=== PATIENT | female | born 1975 | race Caucasian/White ===

== ENCOUNTER 2021-10-28 12:33 | Inpatient (IN) ==
[2021-10-28] MEDS ORDERED: Lactated Ringers SEPSIS* BAG 1,640 ML IV ONE (12:55)
[2021-10-28] MEDS ORDERED: Piperacillin/Tazobac ADVAN 3.375 GM in NS 0.9% 100 ml BAG 100 ML IV ONE (12:55)
[2021-10-28 13:05] LABS: ABS Lymphocytes 1.2 10^3/ul (1.0-4.8); ABS Monocytes 0.8 10^3/ul (0-0.8); Eosinophil % 0.2 %; Hematocrit 39 % (35-47); Hemoglobin 13.1 g/dL (12.0-16.0); Lymphocyte % 10.2 %; Mean Corpuscular HGB Conc 34 g/dL (31-36); Mean Corpuscular Hemoglobin 27 pg (27-31); Mean Corpuscular Volume 81 fL (80-97); Mean Platelet Volume 7.6 fL (7.4-10.4); Platelet Count 273 10^3/uL (150-450); Red Blood Count 4.84 10^6 /uL (3.70-4.87); Red Cell Distribution Width 14 % (10-15); White Blood Count 12.1 10^3/uL (3.5-10.8)
[2021-10-28] MEDS ORDERED: Morphine 4 MG/ML VIAL (1 ml) IV ONE (13:05)
[2021-10-28] MEDS ORDERED: Ondansetron 4 mg VIAL 2 MG/ML 2 ml VIAL IV ONE (13:05)
[2021-10-28 13:52] LABS: Albumin 3.9 g/dL (3.2-5.2); Albumin/Globulin Ratio 1.3 (1-3); C Reactive Protein 186.07 mg/L (<8.01); Calcium 9.2 mg/dL (8.6-10.3); Potassium 4.3 mmol/L (3.5-5.0); Total Bilirubin 1.3 mg/dL (0.2-1.0); Total Protein 6.9 g/dL (6.4-8.9); eGFR CKD-EPI 93.9 (>60)
[2021-10-28] MEDS ORDERED: Iodixanol (CONTRAST) 320 MG/ML 100 ML SDV IV ONE (14:07)
[2021-10-28 14:53] LABS: Urine Appearance Cloudy; Urine Bilirubin Negative (Negative); Urine Color Yellow; Urine Glucose 3+ (>=1000 mg/dL) (Negative)
[2021-10-28 14:54] LABS: Urine Blood 3+ (Large) (Negative); Urine Ketones Trace (Negative); Urine Nitrite Negative (Negative); Urine Protein 2+ (100 mg/dL) (Negative); Urine Specific Gravity 1.025 (1.005-1.030); Urine Urobilinogen 0.2 (Negative) (Negative)
[2021-10-28 15:01] LABS: Urine Bacteria Absent (Absent); Urine Red Blood Cell 2+(6-10/hpf) (Absent); Urine White Blood Cell 3+(>20/hpf) (Absent)
[2021-10-28] MEDS ORDERED: NS 0.9% 1000 ml BAG 1,000 ML IV SCH (18:15)
[2021-10-28] MEDS ORDERED: Insulin GLARGINE 100 un/ml 10 ml VIAL SUBCUT SCH (18:30)
[2021-10-28 19:21] LABS: TSH Ultra Thyroid Stim Horm 1.88 mcIU/mL (0.34-5.60)
[2021-10-28] MEDS: Ondansetron 4 mg VIAL 2 MG/ML 2 ml VIAL IV PRN (20:28)
[2021-10-28] MEDS: Morphine 2 MG/ML SYRINGE IV PRN (20:31)
[2021-10-28] MEDS ORDERED: cefTRIAXone 1 gm/50 mL D5W 1 GM/50 ML BAG IV ONE (21:30)
[2021-10-29] MEDS ORDERED: Lactated Ringers 1000 ml BAG 1,000 ML IV ONE (00:38)
[2021-10-29] MEDS: Lactated Ringers 1000 ml BAG 1,000 ML IV SCH ×3 (01:51→17:50)
[2021-10-29 05:30] LABS: ABS Basophils 0.1 10^3/ul (0-0.2); ABS Lymphocytes 1.8 10^3/ul (1.0-4.8); ABS Monocytes 0.7 10^3/ul (0-0.8); ABS Neutrophils 5.5 10^3/ul (1.5-7.7); Eosinophil % 0.1 %; Hematocrit 33 % (35-47); Hemoglobin 11.7 g/dL (12.0-16.0); Lymphocyte % 21.9 %; Mean Corpuscular HGB Conc 35 g/dL (31-36); Mean Corpuscular Hemoglobin 29 pg (27-31); Mean Corpuscular Volume 83 fL (80-97); Mean Platelet Volume 7.9 fL (7.4-10.4); Platelet Count 225 10^3/uL (150-450); Red Blood Count 4.04 10^6 /uL (3.70-4.87); Red Cell Distribution Width 14 % (10-15)
[2021-10-29 05:49] LABS: Calcium 8.5 mg/dL (8.6-10.3); Potassium 3.7 mmol/L (3.5-5.0); eGFR CKD-EPI 95.4 (>60)
[2021-10-29] MEDS: Morphine 2 MG/ML SYRINGE IV PRN ×2 (08:13→20:26)
[2021-10-29] MEDS: Ondansetron 4 mg VIAL 2 MG/ML 2 ml VIAL IV PRN ×2 (08:13→20:23)
[2021-10-29] MEDS: CMCS: Glimepiride 2 mg TAB (NF) PO SCH ×2 (11:00→16:29)
[2021-10-29] MEDS: Enoxaparin 40 MG/0.4 ML SYR SUBCUT SCH ×2 (20:29→20:33)
[2021-10-29] MEDS ORDERED: cefTRIAXone 1 gm/50 mL D5W 1 GM/50 ML BAG IV SCH (21:00)
[2021-10-29] MEDS ORDERED: Insulin GLARGINE 100 un/ml 10 ml VIAL SUBCUT SCH ×2 (21:00)
[2021-10-30 06:54] LABS: ABS Eosinophils 0.1 10^3/ul (0-0.6); ABS Lymphocytes 2.3 10^3/ul (1.0-4.8); ABS Monocytes 0.6 10^3/ul (0-0.8); ABS Neutrophils 4.2 10^3/ul (1.5-7.7); Eosinophil % 1.7 %; Hematocrit 35 % (35-47); Hemoglobin 12.1 g/dL (12.0-16.0); Lymphocyte % 30.9 %; Mean Corpuscular HGB Conc 35 g/dL (31-36); Mean Corpuscular Hemoglobin 29 pg (27-31); Mean Corpuscular Volume 82 fL (80-97); Platelet Count 217 10^3/uL (150-450); Red Blood Count 4.25 10^6 /uL (3.70-4.87); Red Cell Distribution Width 14 % (10-15); White Blood Count 7.3 10^3/uL (3.5-10.8)
[2021-10-30 07:17] LABS: Albumin 3.2 g/dL (3.2-5.2); Albumin/Globulin Ratio 1.2 (1-3); Calcium 8.9 mg/dL (8.6-10.3); Globulin 2.7 g/dL (2-4); Total Bilirubin 0.4 mg/dL (0.2-1.0); Total Protein 5.9 g/dL (6.4-8.9); eGFR CKD-EPI 116.7 (>60)
[2021-10-30 07:20] VITALS: BP 115/67
[2021-10-30] MEDS: CMCS: Glimepiride 2 mg TAB (NF) PO SCH (07:39)
[2021-10-30] MEDS ORDERED: Senna TAB 8.6 mg TAB PO PRN (07:50)
[2021-10-30] MEDS ORDERED: Magnesium Hydroxide LIQ 30 ML UDC PO PRN (07:50)
== END 2021-10-30 11:55 | disposition home or self-care (01) | DRG 872 ==
LOC: MEDTELE 12:33 → EDHOLD 12:33 → ED 12:33 → MEDTELE 23:26 → SSU 10-29 02:39 → MED 10-29 22:08
PROVIDERS: ADMIT Hospitalist; ATTEND Hospitalist

== ENCOUNTER 2023-03-15 11:12 | Observation (INO) ==
[2023-03-15] MEDS ORDERED: NS 0.9% 1000 ml BAG 1,000 ML IV ONE (11:44)
[2023-03-15] MEDS ORDERED: Ciprofloxacin 400mg IVPREMIX 400 MG/200 ML BAG IVPB ONE (11:44)
[2023-03-15] MEDS ORDERED: Ondansetron 4 mg VIAL 2 MG/ML 2 ml VIAL IV ONE (12:03)
[2023-03-15 12:56] LABS: ABS Lymphocytes 1.3 10^3/uL (1.0-4.8); ABS Monocytes 0.8 10^3/uL (0.0-0.9); ABS Neutrophils 11.7 10^3/uL (1.5-7.6); ABS Nucleated RBC 0.01 10^3/ul; Eosinophil % 0.3 %; Hematocrit 39.9 % (35-45); Hemoglobin 13.4 g/dL (11.5-14.3); Lymphocyte % 9.1 %; Mean Corpuscular Hemoglobin 27.7 pg (27-33); Mean Corpuscular Hgb Conc 33.7 g/dL (31-36); Mean Corpuscular Volume 82.1 fL (80-97); Mean Platelet Volume 8.1 fL (7.5-11.2); Platelet Count 267 10^3/uL (150-450); Red Blood Count 4.85 10^6/uL (3.63-4.92); Red Cell Distribution Width 13.8 % (12-17); White Blood Count 13.9 10^3/uL (3.8-11.8)
[2023-03-15 13:00] LABS: INR 1.15 (0.83-1.13)
[2023-03-15 13:06] LABS: Urine Appearance Turbid; Urine Bilirubin Negative (Negative); Urine Blood 2+ (Negative); Urine Color Yellow; Urine Glucose 3+(>=500 mg/dL) (Negative); Urine Ketones 1+ (Negative); Urine Nitrite Positive (Negative); Urine Protein 2+(100 mg/dL) (Negative); Urine Specific Gravity 1.025 (1.002-1.030); Urine Urobilinogen Negative (Negative)
[2023-03-15 13:12] LABS: Urine Bacteria 2+ (Absent); Urine Red Blood Cell 3+(>10/hpf) (Absent); Urine White Blood Cell 3+(>20/hpf) (Absent)
[2023-03-15 13:35] LABS: Albumin 4.1 g/dL (3.2-5.2); Albumin/Globulin Ratio 1.2 (1-3); C Reactive Protein 239.75 mg/L (<8.01); Calcium 9.6 mg/dL (8.6-10.3); Creatinine, Serum 0.75 mg/dL (0.51-0.95); Globulin 3.3 g/dL (2-4); Potassium 4.1 mmol/L (3.5-5.0); Total Bilirubin 1.1 mg/dL (0.2-1.0); Total Protein 7.4 g/dL (6.4-8.9); eGFR CKD-EPI 98.8 (>60)
[2023-03-15 13:38] LABS: HCG Pregnancy 2.58 mIU/mL
[2023-03-15] MEDS ORDERED: Senna TAB 8.6 mg TAB PO PRN (14:06)
[2023-03-15] MEDS ORDERED: Polyethylene Glycol 3350 17 GM PACKET PO PRN (14:06)
[2023-03-15] MEDS ORDERED: Ondansetron 4 mg VIAL 2 MG/ML 2 ml VIAL IV PRN ×3 (14:06→19:17)
[2023-03-15] MEDS ORDERED: NS 0.9% 1000 ml BAG 1,000 ML IV SCH (14:15)
[2023-03-15] MEDS ORDERED: Albuterol HFA INHALER 8 gm MDI INH PRN (14:55)
[2023-03-15] MEDS ORDERED: Nystatin TOP POWDER 15 GM BTL TOPICAL PRN (14:55)
[2023-03-15] MEDS ORDERED: Dextrose 50% Syringe 50 ml 25 GM/50 ML SYRINGE IV PUSH PRN (14:58)
[2023-03-15] MEDS ORDERED: Acetaminophen IV 1 GM/100ML 1,000 MG/100 ML BAG IV SCH (15:00)
[2023-03-15] MEDS ORDERED: Propofol 10 MG/ML 20 ML BTL ONE (16:27)
[2023-03-15] MEDS ORDERED: Lidocaine 2% PF 5 ML VIAL ONE (16:27)
[2023-03-15] MEDS ORDERED: Dexamethasone IV 4 MG/ML VIAL 1 ml VIAL ONE ×2 (16:28→18:01)
[2023-03-15] MEDS ORDERED: Midazolam 2 mg/2 ml VIAL 1 mg/ml 2 ml VIAL (2 mg) ONE (16:40)
[2023-03-15] MEDS ORDERED: fentaNYL 100 mcg/2 ml 50 MCG/ML VIAL ONE (16:40)
[2023-03-15] MEDS ORDERED: Iohexol 180 (CONTRAST) 10 ML SDV IV ONE (17:21)
[2023-03-15] MEDS ORDERED: KETAMINE HCL 10 MG/ML 20 ml VIAL (200 MG) ONE (17:55)
[2023-03-15] MEDS ORDERED: Ondansetron 4 mg VIAL 2 MG/ML 2 ml VIAL ONE (18:01)
[2023-03-15] MEDS ORDERED: Naloxone 0.4 mg VIAL 0.4 mg/ml 1 ml VIAL IV PRN ×2 (19:10→19:17)
[2023-03-15] MEDS ORDERED: Metoclopramide 5 MG/ML VIAL (10 mg) IV PRN (19:10)
[2023-03-15] MEDS ORDERED: fentaNYL 100 mcg/2 ml 50 MCG/ML VIAL IV PRN (19:10)
[2023-03-15] MEDS ORDERED: HYDROcodone/ACETAMIN 5/325 mg TAB PO PRN (19:10)
[2023-03-15] MEDS ORDERED: Acetaminophen IV 1 GM/100ML 1,000 MG/100 ML BAG IV ONE (19:17)
[2023-03-15] MEDS ORDERED: Acetaminophen IV 1 GM/100ML 1,000 MG/100 ML BAG IV PRN (19:17)
[2023-03-16] MEDS ORDERED: Ciprofloxacin 400mg IVPREMIX 400 MG/200 ML BAG IVPB SCH (00:30)
[2023-03-16] MEDS: Acetaminophen IV 1 GM/100ML 1,000 MG/100 ML BAG IV SCH ×2 (01:52→07:59)
[2023-03-16 06:22] LABS: ABS Lymphocytes 1.5 10^3/uL (1.0-4.8); ABS Monocytes 0.3 10^3/uL (0.0-0.9); ABS Neutrophils 10.1 10^3/uL (1.5-7.6); ABS Nucleated RBC 0.01 10^3/ul; Eosinophil % 0.1 %; Hematocrit 36.7 % (35-45); Hemoglobin 12.2 g/dL (11.5-14.3); Lymphocyte % 12.4 %; Mean Corpuscular Hemoglobin 27.4 pg (27-33); Mean Corpuscular Hgb Conc 33.3 g/dL (31-36); Mean Corpuscular Volume 82.2 fL (80-97); Mean Platelet Volume 8.3 fL (7.5-11.2); Platelet Count 257 10^3/uL (150-450); Red Blood Count 4.46 10^6/uL (3.63-4.92); Red Cell Distribution Width 13.7 % (12-17)
[2023-03-16 07:29] LABS: Calcium 8.6 mg/dL (8.6-10.3); Creatinine, Serum 0.57 mg/dL (0.51-0.95); Magnesium 1.7 mg/dL (1.9-2.7); eGFR CKD-EPI 112.7 (>60)
[2023-03-16 10:59] VITALS: BP 115/76
== END 2023-03-16 12:00 | disposition home or self-care (01) ==
LOC: ED 11:12 → OR 14:26 → MED 14:26 → OR 14:35 → SUATTDRO 20:01
PROVIDERS: ADMIT Urology; ATTEND Hospitalist